=== PATIENT | male | born 2000 | race Caucasian/White ===

== ENCOUNTER 2020-09-20 13:40 | Emergency (ER) | payer SELFPAY ==
[2020-09-20 13:52] VITALS: BP 129/64; PULSE 87; RESP 16; TEMP 37.8; O2SAT 100
--- NOTE | 2020-09-20 14:00 | ED.GENADULT ---
HPI - General Adult General Chief complaint: Back Pain/Injury Stated complaint: Lower Back Pain Time Seen by Provider: 09/20/20 14:00 Source: patient Mode of arrival: ambulatory Limitations: no limitations History of Present Illness HPI narrative: 20-year-old male patient presents to the [facility] with complaints of low back pain that started yesterday. Patient states that he was at work yesterday was lifting something that was about 100 pounds and thinks that he pulled something in his back. Patient states that it did not hurt right away but as the day progresses did get worse. Patient states he took 400 mg of ibuprofen last night as well as 400 mg of ibuprofen this morning. Denies any numbness or tingling down the legs. Denies any loss of bowel or bladder control. Related Data Allergies Allergy/AdvReac Type Severity Reaction Status Date / Time No Known Allergies Allergy Verified 09/20/20 14:06 Review of Systems Review of Systems: Narrative: CONSTITUTIONAL: Denies fever, chills, or sweats. EYES: Denies visual changes, redness, or discharge. ENT: Denies rhinorrhea, congestion, sore throat, or otalgia. CARDIOVASCULAR: Denies chest pain, palpitations, or edema. RESPIRATORY: Denies cough or dyspnea. GASTROINTESTINAL: Denies abdominal pain, nausea, vomiting, or diarrhea. GENITOURINARY: Denies dysuria or hematuria. SKIN: Denies rash or itching. MUSCULOSKELETAL: Positive low back pain, denies joint pain, or myalgia. NEUROLOGIC: Denies headache, numbness, or weakness. PSYCHIATRIC: Denies anxiety or depression. PMFSH Comments At the time of my signature I agree with nursing past medical history, surgical, social, and family history. There is no relevant family history pertinent to the presenting complaint. Exam Narrative: Exam Narrative: GENERAL: Well-appearing, well-nourished, and in no acute distress. HEAD: Normocephalic, atraumatic. EYES: PERRLA and EOMI. ENT: Nares clear, no rhinorrhea or epistaxis. Mucous membranes moist. NECK: Supple. No lymphadenopathy CHEST: Clear to auscultation. No respiratory distress. HEART: Regular rate and rhythm. No murmur heard. Normal peripheral pulses. ABDOMEN: Soft, nontender, nondistended, normal active bowel sounds. EXTREMITIES: Normal range of motion. No edema. BACK: Patient is able to ambulated without assistance. Pt is seated on the stretcher in no obvouis distress. No surface trauma noted. muscle tenderness to Palpation of the lumbar area. No obvious spasm or mass. No step-offs or deformity noted to the cervical, thoracic or lumbar spine to firm Palpation at the midline. No CVA tenderness to percussion. No saddle anesthesia. ROM: able to stand erect. Normal flexion, extension, Lateral bending and rotation without limitation or complaint of pain. SKIN: Warm, dry, no rash. NEURO: No focal deficits. Alert and oriented x3. Course Vital Signs Vital signs: Vital Signs Temperature 37.8 C H 09/20/20 13:52 Pulse Rate 87 09/20/20 13:52 Respiratory Rate 16 09/20/20 13:52 Blood Pressure 129/64 09/20/20 13:52 Pulse Oximetry 100 09/20/20 13:52 Temperature 37.8 C H 09/20/20 13:52 Pulse Rate 87 09/20/20 13:52 Respiratory Rate 16 09/20/20 13:52 Blood Pressure 129/64 09/20/20 13:52 Pulse Oximetry 100 09/20/20 13:52 Vital signs reviewed. Medical Decision Making Differential Diagnosis Differential Diagnosis: Differential diagnosis: Acute musculoskeletal injury or exacerbation, neurological emergency, acute coronary syndrome, kidney stones, epidural abscess or hematoma,Cauda Equina Syndrome, herniation. Discussed with patient this most likely is a strain of the lumbar especially since he is not having any bony tenderness to the spine. Discussed with him that we will go ahead and give him some muscle relaxants he can take this with the [id number] ibuprofen that he has been taking but I do encourage him to increase his ibuprofen either 600 or 800 mg 3 times a day.
== END 2020-09-20 14:10 | disposition home or self-care (01) ==
PROVIDERS: Emergency Provider Nurse Practitioner Family
DX: S39.012A Strain of muscle, fascia and tendon of lower back, initial encounter (principal); X50.0XXA Overexertion from strenuous movement or load, initial encounter; Y99.0 Civilian activity done for income or pay
CPT/HCPCS: 99213; G0463

== ENCOUNTER 2022-08-23 14:29 | Emergency (ER) | payer OTHER, SELFPAY ==
--- NOTE | 2022-08-23 14:38 | ED.DENTAL ---
HPI - Dental/Oral General Chief complaint: Dental/Oral Stated complaint: Toothache Time Seen by Provider: 08/23/22 14:38 Source: patient and RN notes reviewed History of Present Illness HPI Narrative: patient is a 22-year-old male who presents to urgent care with complaints of right upper and lower dental discomfort. Patient states he has had some mild facial swelling. States that it has been off and on for several months but worse in the last week. Patient denies any fevers, nausea, vomiting. Patient has been taking ibuprofen for the pain. Patient has not seen a dentist in some time. No other acute complaints. No acute distress noted. Patient aware of the plan of care. Some parts of this dictation were generated by voice recognition software and may contain typographical and/or grammatical inaccuracies. Related Data Allergies Allergy/AdvReac Type Severity Reaction Status Date / Time No Known Allergies Allergy Verified 08/23/22 14:43 Review of Systems Review of Systems: CONSTITUTIONAL: Denies fever, chills, or sweats. EYES: Denies visual changes, redness, or discharge. ENT: Denies rhinorrhea, congestion, sore throat, or otalgia. Reports of right upper and lower dental pain CARDIOVASCULAR: Denies chest pain, palpitations, or edema. RESPIRATORY: Denies cough or dyspnea. GASTROINTESTINAL: Denies abdominal pain, nausea, vomiting, or diarrhea. GENITOURINARY: Denies dysuria or hematuria. SKIN: Denies rash or itching. MUSCULOSKELETAL: Denies back pain, joint pain, or myalgia. NEUROLOGIC: Denies headache, numbness, or weakness. All other systems reviewed are negative, except as documented in HPI. PMFSH Comments At the time of my signature, I reviewed and agree with the nursing past medical, surgical, social, and family history. There is no relevant family history pertinent to the patient complaint. Exam Narrative: GENERAL: This is a well-nourished, well-developed patient, in no apparent distress. HEAD: normocephalic, atraumatic. EYES: PERRL. Sclera clear/white. Vision is grossly intact. EARS: External ears normal, auditory canals clear and without drainage, TMs normal without perforation. Hearing grossly intact. NOSE: External nose normal with no obvious nasal discharge, nares without redness, no rhinorrhea. THROAT: Mucous membranes moist, posterior pharynx clear. DENTAL: mild edema and erythema to the right upper and lower quadrants with notable carious lesions NECK: Neck supple, non-tender without lymphadenopathy RESPIRATORY: Clear to auscultation. Breath sounds equal bilaterally. No wheezes, rales, or rhonchi. SKIN: warm, intact with no suspicious lesions or rash, good texture and turgor. NEURO: awake, alert, and oriented to person, place and time. There were no obvious focal neurologic abnormalities. EXTREMITIES: No clubbing, cyanosis, or edema. Course Course Level of Care: Express Care Visit Vital Signs Vital signs: Vital Signs Temperature 98.5 F 08/23/22 14:41 Pulse Rate 76 08/23/22 14:41 Respiratory Rate 16 08/23/22 14:41 Blood Pressure 120/51 L 08/23/22 14:41 Pulse Oximetry 100 08/23/22 14:41 Oxygen Delivery Room Air 08/23/22 14:41 Temperature 98.5 F 08/23/22 14:41 Pulse Rate 76 08/23/22 14:41 Respiratory Rate 16 08/23/22 14:41 Blood Pressure 120/51 L 08/23/22 14:41 Pulse Oximetry 100 08/23/22 14:41 Oxygen Delivery Room Air 08/23/22 14:41 reviewed MDM - Dental/Oral MDM Narrative Medical decision making narrative: advised patient to complete the oral antibiotic regimen as prescribed. Be sure to eat and drink with medication. Use the ibuprofen as needed for pain or discomfort. Use the prescription mouthwash as directed. It is important to follow-up with the dentist/ oral surgeon for further evaluation and treatment options. Follow-up with your PCP within 2-5 days or for worsening symptoms or failure to improve. Differential Diagnosis Differential diagnos
[2022-08-23 14:41] VITALS: BP 120/51; PULSE 76; RESP 16; TEMP 36.9; O2SAT 100
== END 2022-08-23 14:40 | disposition home or self-care (01) ==
PROVIDERS: Emergency Provider Nurse Practitioner Family
DX: K04.7 Periapical abscess without sinus (principal); K02.9 Dental caries, unspecified
CPT/HCPCS: 99213; G0463